=== PATIENT | male | born 1970 | race Caucasian/White ===

== ENCOUNTER → 2017-01-03 | Outpatient (CLI) | payer OTHER ==
--- NOTE | 2017-01-03 16:11 | XR ---
Lumbosacral spine HISTORY: Low back pain 5 views of the lumbosacral spine, no comparisons Lumbar vertebral bodies show preserved height and alignment, bone mineralization. There is loss of di sc height at L5-S1. Spondylosis is present at the lower lumbar spine. Sclerosis in the posterior [place] ents compatible with facet arthropathy. No evident spondylolysis. There is a questionable paraspinal calcification on the right. IMPRESSION: Degenerative disc disease. Facet arthropathy. Cannot exclude nephrolithiasis.
== END | disposition home or self-care (01) ==
LOC: RADXRYALE 14:51
PROVIDERS: ATTEND Family Medicine
DX: M51.37 Other intervertebral disc degeneration, lumbosacral region (principal); M46.07 Spinal enthesopathy, lumbosacral region
CPT/HCPCS: 72110

== ENCOUNTER 2024-09-11 08:27 | Emergency (ER) | payer OTHER ==
[2024-09-11 08:34] LABS: Glucose,Whole Blood 115 mg/dL (70-110)
[2024-09-11 08:35] VITALS: RESP 18; TEMP 98.3
--- NOTE | 2024-09-11 08:50 | CT ---
Head CT without contrast HISTORY: Code stroke. COMPARISON: None. TECHNIQUE: Multiple axial images are obtained in the skull base to vertex without the use of IV contr ast material. FINDINGS: The ventricles, basal cisterns and sulci over the convexities are within normal limits and there is n o mass effect or shift of midline structures. No abnormal density is seen throughout the brain parenchyma and there is no acute intra or extra-axia l hemorrhage. Posterior fossa including the brainstem, fourth ventricle and cerebellopontine angles appear grossly normal. The intraorbital contents appear normal and symmetric. The visualized paranasal sinuses and mastoid air cells are well aerated. The calvarium is intact. IMPRESSION: No acute bleed or mass effect. No significant abnormality seen. [facility], Workstation: [id number] 09/11/2024 8:48 AM
[2024-09-11] MEDS: SODIUM CHLORIDE 0.9% 1,000 ML IV STA (08:58)
--- NOTE | 2024-09-11 09:00 | XR ---
Chest, 2 view. CLINICAL INDICATION: Male, 54 years old with history of altered mental status COMPARISON: None TECHNIQUE: PA and lateral views the chest are obtained. FINDINGS: The lungs are clear and there is no consolidative or interstitial opacity. There is no pleural effusion or pneumothorax. The heart, pulmonary vasculature, mediastinum and [place] appear normal. The osseous structures are intact. IMPRESSION: No significant abnormality seen. No acute cardiopulmonary disease. [facility], , 09/11/2024 8:58 AM
[2024-09-11 09:03] LABS: Basophils # (A) 0.05 10*3/uL (0.00-0.10); Basophils % (A) 0.9 %; Eosinophils # (A) 0.14 10*3/uL (0.04-0.35); Eosinophils % (A) 2.5 %; HCT 43.5 % (39.6-50.0); HGB 14.4 g/dL (13.0-17.0); Lymphocytes # (A) 1.35 10*3/uL (0.90-5.00); Lymphocytes % (A) 23.8 %; MCH 28.6 pg (27.0-32.0); MCHC 33.1 g/dL (32.0-37.0); MCV 86.5 fL (80.0-97.0); Mean Platelet Volume 11.3 fL (9.5-12.2); Monocytes # (A) 0.45 10*3/uL (0.20-1.00); Monocytes % (A) 7.9 %; Neutrophils # (A) 3.68 10*3/uL (1.80-7.70); Neutrophils % (A) 64.7 %; Platelet Count 180 10*3/uL (140-440); RBC 5.03 10*6/uL (4.40-5.60); RDW 13.7 % (11.5-14.5); WBC 5.68 10*3/uL (4.50-10.00)
--- NOTE | 2024-09-11 09:15 | CT ---
EXAMINATION TYPE: CT angio head neck DATE OF EXAM: 09/11/2024 COMPARISON: None CLINICAL INDICATION: Male, 54 years old with history of Neuro deficit, acute, stroke suspected; PHH, SPEECH SLURRED TECHNIQUE: CTA scan of the head and neck is performed with IV Contrast, patient injected with 65 mL of Isovue 370, axial images are obtained, coronal and sagittal reformatted images are reviewed. 3D re constructed images are created on an independent workstation and reviewed. CT DLP: 575.[address] CTDI: mGy Automated exposure control for dose reduction was used. NASCET criteria was used in interpretation of this exam? FINDINGS: The brachiocephalic origins are widely patent and no significant stenosis. There is no significant stenosis of the common or internal carotid arteries within the neck. There is no stenosis of the vertebral arteries. Intracranially, there is no stenosis, segmental occlusion, sizable aneurysm sac or vascular malformat ion. IMPRESSION:. No significant abnormality seen. NASCET criteria was used in interpretation of this exam? [facility], Workstation: [id number] 09/11/2024 9:13 AM
[2024-09-11] MEDS: ASPIRIN 325 MG TAB PO STA (09:17)
[2024-09-11] MEDS: TICAGRELOR 90 MG TAB PO STA (09:17)
[2024-09-11 09:20] LABS: Partial Thromboplastin Time 22.6 sec (22.0-30.0)
[2024-09-11 09:34] LABS: ALT 38 U/L (4-49); AST 30 U/L (17-59); African American GFR (CKD) 70 (>60 ml/min/1.73 sqM); Albumin 4.4 g/dL (3.5-5.0); Alkaline Phosphatase 83 U/L (38-126); Anion Gap 10 mmol/L; Blood Urea Nitrogen 23 mg/dL (9-20); Calcium 9.4 mg/dL (8.4-10.2); Carbon Dioxide 23 mmol/L (22-30); Chloride 107 mmol/L (98-107); Creatine Kinase 169 U/L (55-170); Glucose 104 mg/dL (74-99); Non-African American GFR(CKD) 60 (>60 ml/min/1.73 sqM); Potassium 4.1 mmol/L (3.5-5.1); Sodium 140 mmol/L (137-145); Total Bilirubin 0.8 mg/dL (0.2-1.3); Total Protein 7.3 g/dL (6.3-8.2)
--- NOTE | 2024-09-11 09:38 | ED ---
General Adult HPI - General Chief complaint: Neuro Symptoms/Deficit Stated complaint: stroke Time Seen by Provider: 09/11/24 08:27 Source: patient, EMS, RN notes reviewed, old records reviewed Mode of arrival: EMS Limitations: no limitations - History of Present Illness Initial comments: Patient is a 54-year-old male who presents emergency department for strokelike symptoms. Last known well was at 2330 on 09/10/2024 when he went to bed. He woke this morning and was having issues communicating. Called EMS. Noticed that he had right-sided facial droop, dysarthria and aphasia. Presents for further evaluation at this time. Patient has a history remarkable for a single kidney but otherwise no significant past medical history. Denies being on blood thinners. Denies any head injuries. Presents for further evaluation at this time. - Related Data Allergies Allergy/AdvReac Type Severity Reaction Status Date / Time No Known Allergies Allergy Verified 09/11/24 08:35 Review of Systems ROS Statement: Those systems with pertinent positive or pertinent negative responses have been documented in the HPI. Review of Systems: CONST: Denies fever EYES: Denies blurry vision ENT: Denies nasal congestion C/V: Denies Chest pain RESP: Denies shortness of breath GI: Denies abdominal pain : Denies dysuria SKIN: Denies rash. MSK: Denies joint pain. NEURO: Denies headache ROS Other: All systems not noted in ROS Statement are negative. Past Medical History Past Medical History: No Reported History Past Surgical History: No Surgical Hx Reported Smoking Status: Never smoker Past Alcohol Use History: Occasional Past Drug Use History: None Reported General Exam - General Exam Comments Initial Comments: General: Appears in no acute distress. HEAD: Normal with no signs of head trauma. EYES: EOMI. Pupils are 3 mm and equal bilaterally. PERRLA ENT: Hearing grossly intact, normal oropharynx. RESPIRATORY: Clear breath sounds bilaterally. No wheezes, rales, or rhonchi. C/V: Regular rate and rhythm. S1 and S2 auscultated, no edema, peripheral pulses 2+ and intact throughout ABD: Abd is soft, nontender, nondistended EXT: Normal range of motion, no obvious deformity SKIN: No rashes or lesions observed on exposed skin. NEURO: Alert and oriented x 4. GCS 15. NIH is 3-4 for right sided facial droop, aphasia, dysarthria Limitations: no limitations Course Vital Signs 09/11/24 09/11/24 09/11/24 08:28 09:19 09:47 Temperature 98.3 F 98.3 F Pulse Rate 63 58 L 57 L Respiratory 18 18 18 Rate Blood Pressure 148/102 153/91 149/106 O2 Sat by Pulse 98 96 98 Oximetry Medical Decision Making - Medical Decision Making Was pt. sent in by a medical professional or institution (, PA, COURT COMMISSIONER, urgent care, hospital, or correction...) When possible be specific @ -No Did you speak to anyone other than the patient for history (EMS, parent, family, police, friend...)? What history was obtained from this source @ -No Did you review nursing and triage notes (agree or disagree)? Why? @ -I reviewed and agree with nursing and triage notes Were old charts reviewed (outside hosp., previous admission, EMS record, old EKG, old radiological studies, urgent care reports/EKG's, correction records)? Report findings @ -No old charts were reviewed Differential Diagnosis (chest pain, altered mental status, abdominal pain women, abdominal pain men, vaginal bleeding, weakness, fever, dyspnea, syncope, he adache, dizziness, GI bleed, back pain, seizure, CVA, palpatations, mental health, musculoskeletal)? @ -Differential CVA Ischemic stroke, hemorrhagic stroke, brain tumor, atypical migraine, Wernicke's encephalopathy, seizure, multiple sclerosis, meningitis, encephalitis, hypoglycemia, Guillain-Serrano, electrolytes disturbance, myasthenia gravis.... This is not meant to be an all-inclusive list EKG interpreted by me (3pts min.). @ -As above X-rays interpreted by me (1pt min.). @ -Chest x-ray shows no obvious acute cardiopulmonary process. CT interpreted by me (1pt min.). @ -CT brain shows no obvious acute intracranial process. CT angiogram of the head and neck shows a left-sided MCA occlusion per neurology Dr. Ames who contacted me regarding the results. U/S interpreted by me (1pt. min.). @ -None done What testing was considered but not performed or refused? (CT, X-rays, U/S, labs)? Why? @ -None What meds were considered but not given or refused? Why? @ -None Did you discuss the management of the patient with other professionals (professionals i.e. DrCele, PA, COURT COMMISSIONER, lab, RT, psych nurse, oncology social work, service transformer repair supervisor, teacher, aoc aadc operations staff officer, home health care case manager)? Give summary @ -Discussed with neurocritical care on-call, Dr. Ames who was in agreement the plan for workup and for stroke. He did review the images and showed a left sided MCA occlusion. He recommended initiation of Brilinta 180 mg as well as aspirin 325 mg. Requested the patient be transferred to [facility] for furt her care. Was smoking cessation discussed for >3mins.? @ -No Was critical care preformed (if so, how long)? @ -Yes, 42 minutes. Were there social determinants of health that impacted care today? How? (Homelessness, low income, unemployed, alcoholism, drug addiction, transportation, low edu. Level, literacy, decrease access to med. care, nursing home, rehab)? @ -No Was there de-escalation of care discussed even if they declined (Discuss DNR or withdrawal of care, Hospice)? DNR status @ -No What co-morbidities impacted this encounter? (DM, HTN, Smoking, COPD, CAD, Cancer, CVA, ARF, Chemo, Hep., AIDS, mental health diagnosis, sleep apnea, morbid obesity)? @ -None Was patient admitted / discharged? Hospital course, mention meds given and route, prescriptions, significant lab abnormalities, going to OR and other pertinent info. @ -Patient presents as a code stroke. Last known well was 2330 on 09/10/2024. NIH is 3-4. Patient is not a candidate for thrombolytic medications as risks outweigh the benefits as the patient is outside of the window for administration. Patient was in agreement this plan. Neurocritical care on- call, Dr. Ames was in agreement with this plan. Patient made a code stroke. Vitals are within acceptable limits. Laboratory studies at time of transfer were within acceptable limits. Mild increase in BUN and creatinine at [address] brain showed no obvious acute intracranial process. CT angiogram did show a left MCA stroke as seen by Dr. Ames and he requested initiation of Brilinta and aspirin which were completed. Patient be transferred to [facility] at his request. Patient was in agreement this plan. Chest x-ray was unremarkable. EKG unremarkable. At time of transfer, no change in symptoms. Vital signs remained stable. Patient's accepting physician is Dr. Ames as well as the ER physician at [facility], Dr. Carter who does not need to speak with me for transfer line. Undiagnosed new problem with uncertain prognosis? @ -No Drug Therapy requiring intensive monitoring for toxicity (Heparin, Nitro, Insulin, Cardizem)? @ -No Were any procedures done? @ -No Diagnosis/symptom? @ -CVA Acute, or Chronic, or Acute on Chronic? @ -Acute Uncomplicated (without systemic symptoms) or Complicated (systemic symptoms)? @ -Complicated Side effects of treatment? @ -No Exacerbation, Progression, or Severe Exacerbation? @ -No Poses a threat to life or bodily function? How? (Chest pain, USA, MA, pneumonia, PE, COPD, DKA, ARF, appy, cholecystitis, CVA, Diverticulitis, Homicidal, Suicidal, threat to staff... and all critical care pts) @ -Yes - Lab Data Result diagrams: 09/11/24 08:41 09/11/24 08:41 Lab Results 09/11/24 09/11/24 09/11/24 Range/Units 08:32 08:41 08:41 WBC 5.68 (4.50-10.00) 10*3/uL RBC 5.03 (4.40-5.60) 10*6/uL Hgb 14.4 (13.0-17.0) g/dL Hct 43.5 (39.6-50.0) % MCV 86.5 (80.0-97.0) fL MCH 28.6 (27.0-32.0) pg MCHC 33.1 (32.0-37.0) g/dL Plt Count 180 (140-440) 10*3/uL MPV 11.3 (9.5-12.2) fL Immature Gran % (Auto) 0.2 % Neutrophils % 64.7 % Lymphocytes % 23.8 % Monocytes % 7.9 % Eosinophils % 2.5 % Basophils % 0.9 % Immature Gran # 0.01 (0.00-0.04) 10*3/uL Neutrophils # 3.68 (1.80-7.70) 10*3/uL Lymphocytes # 1.35 (0.90-5.00) 10*3/uL Monocytes # 0.45 (0.20-1.00) 10*3/uL Eosinophils # 0.14 (0.04-0.35) 10*3/uL Basophils # 0.05 (0.00-0.10) 10*3/uL PT 11.0 (10.0-12.5) sec INR 1.0 (<1.2) APTT 22.6 (22.0-30.0) sec Sodium (137-145) mmol/L Potassium (3.5-5.1) mmol/L Chloride (98-107) mmol/L Carbon Dioxide (22-30) mmol/L Anion Gap mmol/L BUN (9-20) mg/dL Creatinine (0.66-1.25) mg/dL Est GFR (CKD-EPI)AfAm (>60 ml/min/1.73 sqM) Est GFR (CKD-EPI)NonAf (>60 ml/min/1.73 sqM) Glucose (74-99) mg/dL POC Glucose (mg/dL) 115 H (70-110) mg/dL POC Glu Licensed Nurse Practitioner ID Altimore Desi Calcium (8.4-10.2) mg/dL Total Bilirubin (0.2-1.3) mg/dL AST (17-59) U/L ALT (4-49) U/L Alkaline Phosphatase (38-126) U/L Creatine Kinase (55-170) U/L Total Protein (6.3-8.2) g/dL Albumin (3.5-5.0) g/dL 09/11/24 Range/Units 08:41 WBC (4.50-10.00) 10*3/uL RBC (4.40-5.60) 10*6/uL Hgb (13.0-17.0) g/dL Hct (39.6-50.0) % MCV (80.0-97.0) fL MCH (27.0-32.0) pg MCHC (32.0-37.0) g/dL Plt Count (140-440) 10*3/uL MPV (9.5-12.2) fL Immature Gran % (Auto) % Neutrophils % % Lymphocytes % % Monocytes % % Eosinophils % % Basophils % % Immature Gran # (0.00-0.04) 10*3/uL Neutrophils # (1.80-7.70) 10*3/uL Lymphocytes # (0.90-5.00) 10*3/uL Monocytes # (0.20-1.00) 10*3/uL Eosinophils # (0.04-0.35) 10*3/uL Basophils # (0.00-0.10) 10*3/uL PT (10.0-12.5) sec INR (<1.2) APTT (22.0-30.0) sec Sodium 140 (137-145) mmol/L Potassium 4.1 (3.5-5.1) mmol/L Chloride 107 (98-107) mmol/L Carbon Dioxide 23 (22-30) mmol/L Anion Gap 10 mmol/L BUN 23 H (9-20) mg/dL Creatinine 1.32 H (0.66-1.25) mg/dL Est GFR (CKD-EPI)AfAm 70 (>60 ml/min/1.73 sqM) Est GFR (CKD-EPI)NonAf 60 (>60 ml/min/1.73 sqM) Glucose 104 H (74-99) mg/dL POC Glucose (mg/dL) (70-110) mg/dL POC Glu Licensed Nurse Practitioner ID Calcium 9.4 (8.4-10.2) mg/dL Total Bilirubin 0.8 (0.2-1.3) mg/dL AST 30 (17-59) U/L ALT 38 (4-49) U/L Alkaline Phosphatase 83 (38-126) U/L Creatine Kinase 169 (55-170) U/L Total Protein 7.3 (6.3-8.2) g/dL Albumin 4.4 (3.5-5.0) g/dL - EKG Data -: EKG Interpreted by Me EKG Comments: 12-lead Electrocardiogram Interpretation Note EKG was reviewed and interpreted by myself. 12-lead ECG performed at 0901 is interpreted by me as revealing normal sinus rhythm at a rate of 56 beats per minute. [place] is normal. IN interval is 153 ms, QRS duration is 118 ms, QTc is 424 ms.. There were no ST or T wave abnormalities to suggest myocardial ischemia or injury. R wave progression across the precordium was satisfactory. By my interpretation this EKG is non-diagnostic for acute ischemia. Critical Care Time Critical Care Time: Yes Total Critical Care Time: 42 Disposition Clinical Impression: Cerebrovascular accident (CVA) Disposition: OTHER INSTITUTION NOT DEFINED Condition: Serious Referrals: Gonzalo Hickey DO [Primary Care Provider] - 1-2 days Time of Disposition: 09:38 - Out of Hospital Transfer - Req. Specs Out of Hospital Transfer - Requested Specifics: Other Emergency Center (Transferred to [facility] per neurointerventionalist Dr. Ames for evaluation for his left MCA CVA.)
[2024-09-11 09:49] VITALS: BP 149/106; PULSE 57
== END 2024-09-11 09:54 | disposition other institution (70) ==
LOC: EC 08:27 → SUPCPDRO 08:27 → EC 09:54
DX: I63.9 Cerebral infarction, unspecified (principal); I63.20 Cerebral infarction due to unspecified occlusion or stenosis of unspecified precerebral arteries; R29.703 NIHSS score 3
CPT/HCPCS: 36415; 93005; 80053; 82550; 85025; 85610; 85730; 71046; 70496; 70450; 70498; 99291; 96360; Q9967

== ENCOUNTER → 2024-10-04 | Outpatient (CLI) | payer BC ==
--- NOTE | 2024-10-04 18:18 | US ---
EXAMINATION TYPE: US venous doppler duplex UE RT DATE OF EXAM: 10/04/2024 COMPARISON: NONE CLINICAL INDICATION: Male, 54 years old with history of M79.601 PAIN IN RIGHT ARM; Recent IV site at mid right forearm. On blood thinners- Plavix. TECHNIQUE: Grayscale, color Doppler and spectral Doppler imaging of the upper extremity. SIDE PERFORMED: Right VESSELS IMAGED: IJV Subclavian Vein Axilla Vein Brachial Vein(s) Radial Paired Veins Ulnar Paired Veins Cephalic Vein* Basilic Vein* (*superficial vessels) FINDINGS: Right Arm: Negative for DVT. Positive for superficial thrombus at recent IV site inferior to antecub ital to mid forearm, noncompressible Grayscale, color doppler, spectral doppler imaging performed of the deep veins of the upper extremiti es. IMPRESSION: No evidence for DVT. Superficial thrombophlebitis in the area of prior IV site. [facility], , 10/04/2024 6:16 PM
== END | disposition home or self-care (01) ==
LOC: RADUSWWP 15:41
PROVIDERS: ATTEND Family Medicine
DX: I87.8 Other specified disorders of veins (principal); M79.601 Pain in right arm; Z79.01 Long term (current) use of anticoagulants